=== PATIENT | male | born 1970 | race Hispanic/Latino ===

== ENCOUNTER 2016-07-12 10:08 | Emergency (ER) | payer SELFPAY ==
[~2016-07-12] VITALS: Ht 172.7 cm; Wt 90.0 kg
[2016-07-12] MEDS ORDERED: FLEXERIL PO (11:47)
[2016-07-12] MEDS ORDERED: ULTRAM50 M1 PO (11:47)
[2016-07-12 12:05] VITALS: BP 119/74
== END 2016-07-12 12:05 | disposition home or self-care (01) | DRG 563 ==
LOC: ED 10:08
DX: S39.012A Strain of muscle, fascia and tendon of lower back, initial encounter (principal); M47.817 Spondylosis without myelopathy or radiculopathy, lumbosacral region; W01.0XXA Fall on same level from slipping, tripping and stumbling without subsequent striking against object, initial encounter; Y93.89 Activity, other specified; Y92.89 Other specified places as the place of occurrence of the external cause

== ENCOUNTER 2016-08-03 12:57 | Emergency (ER) | payer SELFPAY ==
[~2016-08-03] VITALS: Ht 172.7 cm; Wt 95.0 kg
[~2016-08-03 12:57] MED LIST: FLEXERIL PO; ULTRAM50 M1 PO
[2016-08-03] MEDS ORDERED: ZOFRAN ODT4 MG PO (14:38)
[2016-08-03] MEDS ORDERED: MOTRIN800 MG PO (14:38)
[2016-08-03] MEDS ORDERED: PERCOCET 5/325M1 TAB PO (14:38)
[2016-08-03] MEDS ORDERED: FLEXERIL PO (14:38)
[2016-08-03 14:54] VITALS: BP 152/87
== END 2016-08-03 14:54 | disposition home or self-care (01) | DRG 552 ==
LOC: ED 12:57
DX: M54.32 Sciatica, left side (principal)

== ENCOUNTER 2018-10-01 12:25 | Observation (INO) | payer OTHER ==
[~2018-10-01] VITALS: Ht 175.3 cm; Wt 102.0 kg
[~2018-10-01 12:25] MED LIST changes: +MOTRIN800 MG PO; +PERCOCET 5/325M1 TAB PO; +ZOFRAN ODT4 MG PO
[2018-10-01 12:50] LABS: HEMATOCRIT 50.3 % (39.0-50.0); IMMATURE GRANULOCYTES 1.1 % (0.0-5.0); MEAN CELL VOLUME 84.5 fL CALC (80.0-100.0); MEAN CORPUSCULAR HGB 28.6 pG CALC (26.0-32.0); MEAN CORPUSCULAR HGB CONC 33.8 g/L CALC (32.0-36.0); NEUT# 8.03 thou/uL (1.82-7.42); RED BLOOD COUNT 5.95 mill/uL (4.70-6.10); RED CELL DISTRI WIDTH 13.6 % (11.5-15.5)
[2018-10-01 13:06] LABS: ALBUMIN 4.6 g/dL (3.2-5.0); ALKALINE PHOSPHATASE 107 u/l (38-126); ANION GAP 15 (6-22 (CALC)); BILIRUBIN, TOTAL 0.7 mg/dL (0.0-1.4); BUN 15 mg/dL (9-20); BUN/CREATININE RATIO 18 (12-20 (CALC)); CARBON DIOXIDE 25 mmol/l (22-30); CHLORIDE 104 mmol/l (95-108); CREATININE 0.9 mg/dL (0.7-1.3); GFR > 60 ML/MIN (>=60 (CALC)); GFR FOR AFR.AMER. > 60 ML/MIN (>=60 (CALC)); LIPASE 70 u/l (23-300); POTASSIUM 3.9 mmol/l (3.5-5.1); SGOT/AST 28 u/l (17-59); SODIUM 140 mmol/l (137-146)
[2018-10-01 13:50] LABS: URINE BILIRUBIN - DIPSTICK NEGATIVE (NEGATIVE); URINE BLOOD DIPSTICK NEGATIVE (NEGATIVE); URINE COLOR YELLOW; URINE GLUCOSE - DIPSTICK NEGATIVE (NEGATIVE); URINE KETONE NEGATIVE (NEGATIVE); URINE LEUK ESTERASE NEGATIVE (NEGATIVE); URINE NITRITE - DIPSTICK NEGATIVE (Negative); URINE PH 6.5 (4.5-8.0); URINE PROTEIN - DIPSTICK NEGATIVE (NEG-TRACE); URINE SPECIFIC GRAVITY <=1.005; URINE UROBILINOGEN - DIPSTICK 0.2 E.U./dL (0.2)
[2018-10-01 15:45] VITALS: BP 112/68
[2018-10-01 19:13] VITALS: BP 106/62
[2018-10-02 04:31] VITALS: BP 115/60
[2018-10-02 09:02] VITALS: BP 129/74
[2018-10-02 15:20] VITALS: BP 132/54
[2018-10-02 18:59] VITALS: BP 105/64
[2018-10-03] VITALS (8 sets, daily range): BP systolic 108–115; BP diastolic 71–84
[2018-10-03] MEDS ORDERED: PREVACID15 M2 PO (13:18)
== END 2018-10-03 15:37 | disposition home or self-care (01) | DRG 382 ==
LOC: ED 12:25 → ED-I 14:00 → ED 14:22 → MS2 14:23
PROVIDERS: Family Medicine; ADMIT Surgery; ATTEND Surgery
PROC: 0DB38ZX Excision of Lower Esophagus, Via Natural or Artificial Opening Endoscopic, Diagnostic (ICD-10-PCS; principal; 2018-10-03)
PROC: 0DB78ZX Excision of Stomach, Pylorus, Via Natural or Artificial Opening Endoscopic, Diagnostic (ICD-10-PCS; 2018-10-03)
DX: K22.10 Ulcer of esophagus without bleeding (principal); K21.0 Gastro-esophageal reflux disease with esophagitis; K29.80 Duodenitis without bleeding; K31.7 Polyp of stomach and duodenum; K29.70 Gastritis, unspecified, without bleeding; M51.9 Unspecified thoracic, thoracolumbar and lumbosacral intervertebral disc disorder; Z98.890 Other specified postprocedural states
CPT/HCPCS: G0378; J1610; J1650; Q9967

== ENCOUNTER 2019-07-09 20:12 | Emergency (ER) | payer SELFPAY ==
[~2019-07-09 20:12] MED LIST changes: +PREVACID15 M2 PO
[2019-07-09 21:08] LABS: HEMATOCRIT 47.2 % (39.0-50.0); HEMOGLOBIN 15.3 g/dl (14.0-18.0); IMMATURE GRANULOCYTES 0.2 % (0.0-5.0); MEAN CELL VOLUME 87.1 fL CALC (80.0-100.0); MEAN CORPUSCULAR HGB 28.2 pG CALC (26.0-32.0); MEAN CORPUSCULAR HGB CONC 32.4 g/dL CAL (32.0-36.0); NEUT# 3.32 thou/uL (1.82-7.42); RED BLOOD COUNT 5.42 mill/uL (4.70-6.10); RED CELL DISTRI WIDTH 13.4 % (11.5-15.5)
[2019-07-09 21:11] LABS: URINE BILIRUBIN - DIPSTICK NEGATIVE (NEGATIVE); URINE BLOOD DIPSTICK NEGATIVE (NEGATIVE); URINE COLOR YELLOW; URINE GLUCOSE - DIPSTICK NEGATIVE (NEGATIVE); URINE KETONE TRACE mg/dL (NEGATIVE); URINE LEUK ESTERASE NEGATIVE (NEGATIVE); URINE NITRITE - DIPSTICK NEGATIVE (Negative); URINE PROTEIN - DIPSTICK NEGATIVE (NEG-TRACE); URINE SPECIFIC GRAVITY >=1.030; URINE UROBILINOGEN - DIPSTICK 0.2 E.U./dL (0.2)
[2019-07-09 21:26] LABS: CPK 423 u/l (52-200)
[2019-07-09 21:27] LABS: ALBUMIN 4.3 g/dL (3.2-5.0); ALKALINE PHOSPHATASE 107 u/l (38-126); ANION GAP 13 (6-22 (CALC)); BUN 11 mg/dL (9-20); BUN/CREATININE RATIO 15 (12-20 (CALC)); CARBON DIOXIDE 22 mmol/l (22-30); CHLORIDE 108 mmol/l (95-108); CREATININE 0.8 mg/dL (0.7-1.3); GFR > 60 ML/MIN (>=60 (CALC)); GFR FOR AFR.AMER. > 60 ML/MIN (>=60 (CALC)); SGOT/AST 42 u/l (17-59); SODIUM 139 mmol/l (137-146); TOTAL PROTEIN 7.5 g/dL (6.3-8.2)
[2019-07-09 21:28] LABS: BILIRUBIN, TOTAL 0.3 mg/dL (0.0-1.4)
[2019-07-09 21:36] LABS: MYOGLOBIN 94 ng/mL (0 - 121)
[2019-07-09] MEDS ORDERED: ULTRAM50 M1 PO (21:48)
[2019-07-09] MEDS ORDERED: BENADRYL 50MG C50 MG PO (21:48)
[2019-07-09 23:00] VITALS: BP 160/92
== END 2019-07-09 23:00 | disposition home or self-care (01) | DRG 918 ==
LOC: ED 20:12
PROVIDERS: Emergency Medicine
DX: T63.2X1A Toxic effect of venom of scorpion, accidental (unintentional), initial encounter (principal); Y92.89 Other specified places as the place of occurrence of the external cause; Y99.0 Civilian activity done for income or pay